=== PATIENT | female | born 1935 | race Caucasian/White ===

== ENCOUNTER 2018-06-25 09:14 | Inpatient (IN) ==
[2018-06-25] MEDS ORDERED: ONDANSETRON 4 MG/2 ML VIAL IV STA (09:31)
[2018-06-25] MEDS ORDERED: methylPREDNISolone SOD SUC 125 MG/2 ML VIAL IV STA (09:31)
[2018-06-25] MEDS ORDERED: LEVOFLOXACIN INJ 750 MG in PREMIX 1 EACH IV STA (09:31)
[2018-06-25] MEDS ORDERED: MAGNESIUM SULF RIDER 2 GM in PREMIX 1 EACH IV STA (09:31)
[2018-06-25 09:46] LABS: Basophils # 0.1 10*3/uL (0.0-0.2); Basophils % 0.9 % (0.0-0.8); Eosinophils # 2.7 10*3/uL (0.0-0.87); Eosinophils % 17.3 % (0.00-10.9); Hematocrit 46.2 VOL% (35.7-47.0); Immature Granulocytes % 0.5 %; Immature Granulocytes Absolute 0.08 #; Lymphocytes # 4.4 10*3/uL (1.4-4.0); Lymphocytes % 28.7 % (21.3-54.2); Mean Corpuscular HGB Conc 32.5 GM/DL (32-36); Mean Corpuscular Hemoglobin 30 PG (27-34); Mean Corpuscular Volume 93.5 FL (87-102); Mean Platelet Volume 9.7 FL (9.6-12.0); Monocytes % 6.7 % (1.7-12.7); Neutrophils # 7.1 10*3/uL (1.4-7.4); Neutrophils % 45.9 % (38.7-73.9); Platelet Count 213 T/CUMM (130-400); Red Blood Count 4.94 MC/CUMM (3.8-5.5); Red Cell Distribution Width 14.3 % (9.3-17.3); White Blood Count 15.4 T/CUMM (4-12)
[2018-06-25 09:55] LABS: PT Patient Result 10.9 SECS; Partial Thromboplastin Time 24.7 SECS (0-40)
[2018-06-25] MEDS ORDERED: ALBUTEROL 2.5 MG/3 ML NEB RESP TX SCH (10:00)
[2018-06-25 10:05] LABS: Alanine Aminotransferase 18 U/L (13-56); Albumin 3.7 G/DL (3.4-5.0); Alkaline Phosphatase 131 U/L (45-117); Aspartate Amino Transferase 18 U/L (0-37); Blood Urea Nitrogen 16 MG/DL (7-18); Calcium 9.4 MG/DL (8.5-10.1); Glucose 245 MG/DL (74-106); Osmolality,Calculated 283.7 MOS/KG (273-304); Potassium 3.8 MMOL/L (3.5-5.1); Sodium 138 MMOL/L (136-145); Total Protein 7.2 G/DL (6.4-8.3)
[2018-06-25] MEDS ORDERED: FUROSEMIDE 40 MG/4 ML VIAL IV STA (10:06)
[2018-06-25 10:07] LABS: Eosinophils 20 % (0-10); Lymphocytes 29 % (20-55); Segmented Neutrophils 47 % (50-85); Total Cells Counted 100; Troponin I Only 0.198 NG/ML (0.00-0.045)
[2018-06-25 10:08] LABS: Hypochromasia 1+; Microcytosis Slight; Platelet Estimate Normal
[2018-06-25] MEDS ORDERED: DILTIAZEM 50 MG/10 ML VIAL IV STA (10:37)
[2018-06-25] MEDS ORDERED: DIGOXIN 0.5 MG/2 ML AMP IV STA (11:16)
[2018-06-25 12:15] LABS: Apearance,Urine CLEAR (Clear); Bacteria,Urine Occasional /HPF (Few); Bilirubin,Urine Negative (Negative); Blood, Urine Negative (Negative); Glucose,Urine (UA) Negative (Negative); Hyaline Casts,Urine 1 /LPF (0-3); Ketones,Urine Negative (Negative); Mucus,Urine Occasional /LPF (Occasional); Nitrite,Urine Negative (Negative); Protein,Urine Negative; RBC,Urine <1 /HPF (0-4); Squamous Epithelial Cell,Urine Occasional /HPF (0-10); Urine Color Yellow (Yellow); Urine Specific Gravity 1.005 (1.001-1.035); Urine Urobilinogen < 2.0 EU/DL (0.2-1.0)
[2018-06-25] MEDS ORDERED: ONDANSETRON 4 MG/2 ML VIAL IV PRN (14:00)
[2018-06-25] MEDS ORDERED: ACETAMINOPHEN 325 MG TABLET PO PRN (14:00)
[2018-06-25] MEDS ORDERED: GLUCAGON 1 MG VIAL IM PRN (14:00)
[2018-06-25] MEDS ORDERED: DEXTROSE 50% 25 GM/50 ML VIAL IV PRN (14:00)
[2018-06-25] MEDS ORDERED: ALBUTEROL 0.63 MG/3 ML NEB RESP TX PRN (14:04)
[2018-06-25 17:00] LABS: Pt O2 Delivery Device Other
[2018-06-25 17:05] LABS: ABG Base Excess 4.1 MMOL/L (-2.5-2.5); ABG Oxygen Saturation 99.3 % (95-100); ABG PCO2 43.1 MM HG (35-48); ABG PH 7.434 (7.35-7.45); ABG TCO2 24.6 MMOL/L (23-27)
[2018-06-25] MEDS: MEROPENEM 1,000 MG in SYRINGE 1 EACH IV SCH (17:15)
[2018-06-25] MEDS: ENOXAPARIN 30 MG/0.3 ML SYRINGE SUBCUT SCH (17:15)
[2018-06-25] MEDS: methylPREDNISolone SOD SUC 40 MG/1 ML VIAL IV SCH ×2 (17:15→22:37)
[2018-06-25] MEDS: PANTOPRAZOLE 40 MG TABLET PO SCH (17:15)
[2018-06-25] MEDS ORDERED: FUROSEMIDE 40 MG/4 ML VIAL IV ONE (18:45)
[2018-06-25] MEDS: SODIUM CHLORIDE 0.9% 1,000 ML IV SCH (19:17)
[2018-06-25] MEDS: INSULIN LISPRO 100 UNIT/ML SUBCUT SCH ×2 (19:18→22:36)
[2018-06-25] MEDS: ALBUTEROL/IPRATROPIUM 3 ML NEB RESP TX SCH (20:10)
[2018-06-26] MEDS: INSULIN LISPRO 100 UNIT/ML SUBCUT SCH ×3 (00:12→07:44)
[2018-06-26] MEDS: ALBUTEROL/IPRATROPIUM 3 ML NEB RESP TX SCH ×4 (01:12→19:22)
[2018-06-26] MEDS: MEROPENEM 1,000 MG in SYRINGE 1 EACH IV SCH ×2 (03:41→14:34)
[2018-06-26 06:03] LABS: Basophils % 0.1 % (0.0-0.8); Eosinophils % 0.1 % (0.00-10.9); Hematocrit 40.1 VOL% (35.7-47.0); Hemoglobin 13.4 GM/DL (12.0-16.0); Immature Granulocytes % 0.7 %; Immature Granulocytes Absolute 0.06 #; Lymphocytes # 0.6 10*3/uL (1.4-4.0); Lymphocytes % 6.2 % (21.3-54.2); Mean Corpuscular HGB Conc 33.4 GM/DL (32-36); Mean Corpuscular Hemoglobin 30 PG (27-34); Mean Corpuscular Volume 90.1 FL (87-102); Mean Platelet Volume 10.2 FL (9.6-12.0); Monocytes # 0.3 10*3/uL (0.11-0.8); Monocytes % 2.8 % (1.7-12.7); Neutrophils % 90.1 % (38.7-73.9); Platelet Count 160 T/CUMM (130-400); Red Blood Count 4.45 MC/CUMM (3.8-5.5); White Blood Count 8.9 T/CUMM (4-12)
[2018-06-26] MEDS: methylPREDNISolone SOD SUC 40 MG/1 ML VIAL IV SCH ×3 (06:22→22:36)
[2018-06-26] MEDS: SODIUM CHLORIDE 0.9% 1,000 ML IV SCH (06:22)
[2018-06-26 06:23] LABS: Calcium 8.7 MG/DL (8.5-10.1); Osmolality,Calculated 286.4 MOS/KG (273-304); Potassium 3.4 MMOL/L (3.5-5.1)
[2018-06-26] MEDS: PANTOPRAZOLE 40 MG TABLET PO SCH (08:38)
[2018-06-26] MEDS: POTASSIUM CHLORIDE 20 MEQ TABLET PO PRN ×4 (11:03→21:48)
[2018-06-26] MEDS ORDERED: NITROGLYCERIN SL 0.4 MG TABLET SL PRN (12:02)
[2018-06-26] MEDS: ASPIRIN EC 81 MG TABLET PO SCH (12:40)
[2018-06-26] MEDS: METOPROLOL SUCCINATE XL 50 MG TABLET PO SCH (12:40)
[2018-06-26 13:16] LABS: CKMB % 5.7 %; Troponin I Only 1.98 NG/ML (0.00-0.045)
[2018-06-26] MEDS: ENOXAPARIN 30 MG/0.3 ML SYRINGE SUBCUT SCH (14:34)
[2018-06-26] MEDS: FUROSEMIDE 40 MG/4 ML VIAL IV SCH (15:27)
[2018-06-26] MEDS: ATORVASTATIN 10 MG TABLET PO SCH (20:43)
[2018-06-27] MEDS: ALBUTEROL/IPRATROPIUM 3 ML NEB RESP TX SCH ×5 (00:46→23:59)
[2018-06-27] MEDS: MEROPENEM 1,000 MG in SYRINGE 1 EACH IV SCH ×2 (02:11→13:40)
[2018-06-27 05:31] LABS: Basophils % 0.2 % (0.0-0.8); Eosinophils % 0.1 % (0.00-10.9); Hematocrit 41.8 VOL% (35.7-47.0); Hemoglobin 14.1 GM/DL (12.0-16.0); Immature Granulocytes % 0.6 %; Lymphocytes % 3.5 % (21.3-54.2); Mean Corpuscular HGB Conc 33.7 GM/DL (32-36); Mean Corpuscular Hemoglobin 30 PG (27-34); Mean Corpuscular Volume 89.1 FL (87-102); Mean Platelet Volume 10.2 FL (9.6-12.0); Neutrophils % 93.6 % (38.7-73.9); Platelet Count 190 T/CUMM (130-400); Red Blood Count 4.69 MC/CUMM (3.8-5.5); Red Cell Distribution Width 14.4 % (9.3-17.3); White Blood Count 17.3 T/CUMM (4-12)
[2018-06-27 05:32] LABS: Immature Granulocytes Absolute 0.11 #; Lymphocytes # 0.6 10*3/uL (1.4-4.0); Monocytes # 0.4 10*3/uL (0.11-0.8); Neutrophils # 16.2 10*3/uL (1.4-7.4)
[2018-06-27 05:59] LABS: Osmolality,Calculated 296.7 MOS/KG (273-304); Potassium 3.8 MMOL/L (3.5-5.1)
[2018-06-27 06:02] LABS: Risk Ratio 2.73; VLDL CHOLESTEROL 22.8 MG/DL
[2018-06-27 06:20] LABS: Anisocytosis Slight; Band Neutrophils 8 % (0-10); Lymphocytes 1 % (20-55); Platelet Estimate Normal; Segmented Neutrophils 88 % (50-85); Total Cells Counted 100
[2018-06-27] MEDS: POTASSIUM CHLORIDE 20 MEQ TABLET PO PRN (06:24)
[2018-06-27] MEDS: PANTOPRAZOLE 40 MG TABLET PO SCH (08:44)
[2018-06-27] MEDS: FUROSEMIDE 40 MG/4 ML VIAL IV SCH ×2 (08:44→16:14)
[2018-06-27] MEDS: METOPROLOL SUCCINATE XL 50 MG TABLET PO SCH (08:44)
[2018-06-27] MEDS: ASPIRIN EC 81 MG TABLET PO SCH (08:44)
[2018-06-27] MEDS ORDERED: amLODIPine 2.5 MG TABLET PO SCH (09:00)
[2018-06-27] MEDS: methylPREDNISolone SOD SUC 40 MG/1 ML VIAL IV SCH ×2 (11:03→23:01)
[2018-06-27] MEDS: ENOXAPARIN 30 MG/0.3 ML SYRINGE SUBCUT SCH (13:47)
[2018-06-27] MEDS: ATORVASTATIN 10 MG TABLET PO SCH (20:02)
[2018-06-28] MEDS ORDERED: clonazePAM 0.5 MG TABLET PO ONE
[2018-06-28] MEDS: MEROPENEM 1,000 MG in SYRINGE 1 EACH IV SCH ×2 (02:56→15:05)
[2018-06-28 05:24] LABS: Basophils % 0.1 % (0.0-0.8); Eosinophils % 0.1 % (0.00-10.9); Hematocrit 43.9 VOL% (35.7-47.0); Hemoglobin 14.5 GM/DL (12.0-16.0); Immature Granulocytes % 0.9 %; Immature Granulocytes Absolute 0.12 #; Lymphocytes # 0.6 10*3/uL (1.4-4.0); Lymphocytes % 4.4 % (21.3-54.2); Mean Corpuscular Hemoglobin 30 PG (27-34); Mean Platelet Volume 10.2 FL (9.6-12.0); Monocytes # 0.4 10*3/uL (0.11-0.8); Monocytes % 2.7 % (1.7-12.7); Neutrophils # 12.1 10*3/uL (1.4-7.4); Neutrophils % 91.8 % (38.7-73.9); Platelet Count 189 T/CUMM (130-400); Red Blood Count 4.88 MC/CUMM (3.8-5.5); Red Cell Distribution Width 14.3 % (9.3-17.3); White Blood Count 13.2 T/CUMM (4-12)
[2018-06-28 05:40] LABS: Calcium 9.2 MG/DL (8.5-10.1); Osmolality,Calculated 296.8 MOS/KG (273-304); Potassium 3.6 MMOL/L (3.5-5.1)
[2018-06-28 06:22] LABS: Lymphocytes 4 % (20-55); Segmented Neutrophils 95 % (50-85); Total Cells Counted 100
[2018-06-28 06:23] LABS: Anisocytosis 1+; Ovalocytes Few
[2018-06-28 06:24] LABS: Platelet Estimate Normal
[2018-06-28] MEDS: ALBUTEROL/IPRATROPIUM 3 ML NEB RESP TX SCH ×3 (07:05→19:46)
[2018-06-28] MEDS: FUROSEMIDE 40 MG/4 ML VIAL IV SCH (09:08)
[2018-06-28] MEDS: POTASSIUM CHLORIDE 20 MEQ TABLET PO SCH ×2 (09:09→21:03)
[2018-06-28] MEDS: PANTOPRAZOLE 40 MG TABLET PO SCH (09:09)
[2018-06-28] MEDS: ASPIRIN EC 81 MG TABLET PO SCH (09:09)
[2018-06-28] MEDS: amLODIPine 5 MG TABLET PO SCH (09:09)
[2018-06-28] MEDS: METOPROLOL SUCCINATE XL 50 MG TABLET PO SCH (09:09)
[2018-06-28] MEDS: methylPREDNISolone SOD SUC 40 MG/1 ML VIAL IV SCH ×3 (10:25→22:33)
[2018-06-28] MEDS: ENOXAPARIN 30 MG/0.3 ML SYRINGE SUBCUT SCH (13:23)
[2018-06-28] MEDS: LEVOTHYROXINE 100 MCG TABLET PO SCH (15:05)
[2018-06-28] MEDS: ATORVASTATIN 10 MG TABLET PO SCH (21:04)
[2018-06-28] MEDS: clonazePAM 0.5 MG TABLET PO SCH (21:56)
[2018-06-29] MEDS: ALBUTEROL/IPRATROPIUM 3 ML NEB RESP TX SCH ×4 (00:04→19:33)
[2018-06-29] MEDS: MEROPENEM 1,000 MG in SYRINGE 1 EACH IV SCH ×2 (02:14→15:09)
[2018-06-29 03:56] LABS: Basophils % 0.1 % (0.0-0.8); Eosinophils % 0.1 % (0.00-10.9); Hemoglobin 14.6 GM/DL (12.0-16.0); Immature Granulocytes % 0.8 %; Lymphocytes # 0.5 10*3/uL (1.4-4.0); Lymphocytes % 4.5 % (21.3-54.2); Mean Corpuscular Hemoglobin 31 PG (27-34); Mean Corpuscular Volume 90.3 FL (87-102); Mean Platelet Volume 10.3 FL (9.6-12.0); Monocytes # 0.4 10*3/uL (0.11-0.8); Monocytes % 3.1 % (1.7-12.7); Neutrophils # 10.9 10*3/uL (1.4-7.4); Neutrophils % 91.4 % (38.7-73.9); Platelet Count 174 T/CUMM (130-400); Red Blood Count 4.76 MC/CUMM (3.8-5.5); Red Cell Distribution Width 14.3 % (9.3-17.3); White Blood Count 11.9 T/CUMM (4-12)
[2018-06-29 04:31] LABS: Lymphocytes 3 % (20-55); Platelet Estimate Normal; Promyelocytes 1 %; Segmented Neutrophils 93 % (50-85); Total Cells Counted 100
[2018-06-29 04:32] LABS: Calcium 9.6 MG/DL (8.5-10.1); Osmolality,Calculated 303.6 MOS/KG (273-304); Potassium 3.9 MMOL/L (3.5-5.1)
[2018-06-29] MEDS: LEVOTHYROXINE 100 MCG TABLET PO SCH (05:56)
[2018-06-29] MEDS: POTASSIUM CHLORIDE 20 MEQ TABLET PO SCH ×2 (10:07→21:32)
[2018-06-29] MEDS: amLODIPine 5 MG TABLET PO SCH (10:08)
[2018-06-29] MEDS: ASPIRIN EC 81 MG TABLET PO SCH (10:08)
[2018-06-29] MEDS: PANTOPRAZOLE 40 MG TABLET PO SCH (10:08)
[2018-06-29] MEDS: METOPROLOL SUCCINATE XL 50 MG TABLET PO SCH (10:09)
[2018-06-29] MEDS: FUROSEMIDE 40 MG/4 ML VIAL IV SCH (10:09)
[2018-06-29] MEDS: methylPREDNISolone SOD SUC 40 MG/1 ML VIAL IV SCH ×2 (12:51→23:27)
[2018-06-29] MEDS: MONTELUKAST 10 MG TABLET PO SCH (14:57)
[2018-06-29] MEDS: BUDESONIDE/FORMOTEROL 160-4.5 INHALER 6 GM INH SCH ×2 (14:57→21:36)
[2018-06-29] MEDS: ENOXAPARIN 30 MG/0.3 ML SYRINGE SUBCUT SCH (14:59)
[2018-06-29] MEDS: ATORVASTATIN 10 MG TABLET PO SCH (21:32)
[2018-06-29] MEDS: clonazePAM 0.5 MG TABLET PO SCH (21:32)
[2018-06-29] MEDS: ZINC OXIDE PASTE 113 GM TUBE TOP SCH (21:36)
[2018-06-30] MEDS: ALBUTEROL/IPRATROPIUM 3 ML NEB RESP TX SCH ×4 (01:35→19:48)
[2018-06-30] MEDS: MEROPENEM 1,000 MG in SYRINGE 1 EACH IV SCH (02:39)
[2018-06-30 04:44] LABS: Hemoglobin 14.1 GM/DL (12.0-16.0); Immature Granulocytes % 1.2 %; Immature Granulocytes Absolute 0.12 #; Lymphocytes # 0.6 10*3/uL (1.4-4.0); Lymphocytes % 5.4 % (21.3-54.2); Mean Corpuscular HGB Conc 32.8 GM/DL (32-36); Mean Corpuscular Hemoglobin 30 PG (27-34); Mean Corpuscular Volume 91.7 FL (87-102); Mean Platelet Volume 10.8 FL (9.6-12.0); Monocytes # 0.4 10*3/uL (0.11-0.8); Monocytes % 3.7 % (1.7-12.7); Neutrophils # 9.1 10*3/uL (1.4-7.4); Neutrophils % 89.7 % (38.7-73.9); Platelet Count 162 T/CUMM (130-400); Red Blood Count 4.69 MC/CUMM (3.8-5.5); Red Cell Distribution Width 14.2 % (9.3-17.3); White Blood Count 10.1 T/CUMM (4-12)
[2018-06-30 05:07] LABS: Calcium 9.1 MG/DL (8.5-10.1); Osmolality,Calculated 298.1 MOS/KG (273-304); Potassium 4.1 MMOL/L (3.5-5.1)
[2018-06-30] MEDS: LEVOTHYROXINE 100 MCG TABLET PO SCH (06:27)
[2018-06-30] MEDS: ASPIRIN EC 81 MG TABLET PO SCH (10:18)
[2018-06-30] MEDS: POTASSIUM CHLORIDE 20 MEQ TABLET PO SCH ×2 (10:18→22:24)
[2018-06-30] MEDS: PANTOPRAZOLE 40 MG TABLET PO SCH (10:18)
[2018-06-30] MEDS: MONTELUKAST 10 MG TABLET PO SCH (10:19)
[2018-06-30] MEDS: methylPREDNISolone SOD SUC 40 MG/1 ML VIAL IV SCH ×2 (10:19→22:29)
[2018-06-30] MEDS: METOPROLOL SUCCINATE XL 50 MG TABLET PO SCH (10:19)
[2018-06-30] MEDS: ZINC OXIDE PASTE 113 GM TUBE TOP SCH ×2 (10:19→22:30)
[2018-06-30] MEDS: amLODIPine 5 MG TABLET PO SCH (10:19)
[2018-06-30] MEDS: BUDESONIDE/FORMOTEROL 160-4.5 INHALER 6 GM INH SCH ×2 (10:19→22:26)
[2018-06-30] MEDS: FUROSEMIDE 40 MG/4 ML VIAL IV SCH (10:20)
[2018-06-30] MEDS: LEVOFLOXACIN 750 MG TABLET PO SCH (13:12)
[2018-06-30] MEDS: FLUCONAZOLE 100 MG TABLET PO SCH (13:12)
[2018-06-30] MEDS: ENOXAPARIN 30 MG/0.3 ML SYRINGE SUBCUT SCH (17:09)
[2018-06-30] MEDS: VENLAFAXINE 75 MG TABLET PO SCH (22:23)
[2018-06-30] MEDS: clonazePAM 0.5 MG TABLET PO SCH (22:23)
[2018-06-30] MEDS: ATORVASTATIN 10 MG TABLET PO SCH (22:24)
[2018-06-30] MEDS: GABAPENTIN 100 MG CAPSULE PO SCH (22:25)
[2018-07-01] MEDS: ALBUTEROL/IPRATROPIUM 3 ML NEB RESP TX SCH ×4 (01:04→20:22)
[2018-07-01] MEDS: LEVOTHYROXINE 100 MCG TABLET PO SCH (05:49)
[2018-07-01 05:55] LABS: Basophils % 0.2 % (0.0-0.8); Hematocrit 41.6 VOL% (35.7-47.0); Hemoglobin 13.9 GM/DL (12.0-16.0); Immature Granulocytes % 1.3 %; Immature Granulocytes Absolute 0.13 #; Lymphocytes # 0.5 10*3/uL (1.4-4.0); Lymphocytes % 4.9 % (21.3-54.2); Mean Corpuscular HGB Conc 33.4 GM/DL (32-36); Mean Corpuscular Hemoglobin 30 PG (27-34); Mean Corpuscular Volume 89.5 FL (87-102); Mean Platelet Volume 10.4 FL (9.6-12.0); Monocytes # 0.3 10*3/uL (0.11-0.8); Monocytes % 3.4 % (1.7-12.7); Neutrophils # 8.7 10*3/uL (1.4-7.4); Neutrophils % 90.2 % (38.7-73.9); Platelet Count 146 T/CUMM (130-400); Red Blood Count 4.65 MC/CUMM (3.8-5.5); Red Cell Distribution Width 13.8 % (9.3-17.3); White Blood Count 9.7 T/CUMM (4-12)
[2018-07-01 06:08] LABS: Osmolality,Calculated 297.4 MOS/KG (273-304); Potassium 4.5 MMOL/L (3.5-5.1)
[2018-07-01 06:20] LABS: Band Neutrophils 2 % (0-10); Lymphocytes 3 % (20-55); Platelet Estimate Normal; Segmented Neutrophils 95 % (50-85); Total Cells Counted 100
[2018-07-01] MEDS: VENLAFAXINE 75 MG TABLET PO SCH ×2 (09:45→21:38)
[2018-07-01] MEDS: MONTELUKAST 10 MG TABLET PO SCH (09:45)
[2018-07-01] MEDS: FUROSEMIDE 40 MG TABLET PO SCH (09:45)
[2018-07-01] MEDS: ASPIRIN EC 81 MG TABLET PO SCH (09:45)
[2018-07-01] MEDS: POTASSIUM CHLORIDE 20 MEQ TABLET PO SCH ×2 (09:45→21:39)
[2018-07-01] MEDS: FLUCONAZOLE 100 MG TABLET PO SCH (09:46)
[2018-07-01] MEDS: BUDESONIDE/FORMOTEROL 160-4.5 INHALER 6 GM INH SCH ×2 (09:46→21:39)
[2018-07-01] MEDS: METOPROLOL SUCCINATE XL 50 MG TABLET PO SCH (09:46)
[2018-07-01] MEDS: GABAPENTIN 100 MG CAPSULE PO SCH ×2 (09:46→21:38)
[2018-07-01] MEDS: ZINC OXIDE PASTE 113 GM TUBE TOP SCH ×2 (09:46→21:39)
[2018-07-01] MEDS: amLODIPine 5 MG TABLET PO SCH (09:46)
[2018-07-01] MEDS: PANTOPRAZOLE 40 MG TABLET PO SCH (09:46)
[2018-07-01] MEDS: methylPREDNISolone SOD SUC 40 MG/1 ML VIAL IV SCH ×2 (11:33→23:03)
[2018-07-01] MEDS: ENOXAPARIN 30 MG/0.3 ML SYRINGE SUBCUT SCH (14:41)
[2018-07-01] MEDS: ATORVASTATIN 10 MG TABLET PO SCH (21:38)
[2018-07-01] MEDS: clonazePAM 0.5 MG TABLET PO SCH (21:38)
[2018-07-02] MEDS: ALBUTEROL/IPRATROPIUM 3 ML NEB RESP TX SCH ×4 (00:54→19:41)
[2018-07-02] MEDS: LEVOTHYROXINE 100 MCG TABLET PO SCH (05:47)
[2018-07-02 06:36] LABS: Basophils % 0.2 % (0.0-0.8); Hematocrit 44.8 VOL% (35.7-47.0); Hemoglobin 14.3 GM/DL (12.0-16.0); Immature Granulocytes % 1.5 %; Immature Granulocytes Absolute 0.19 #; Lymphocytes # 0.5 10*3/uL (1.4-4.0); Lymphocytes % 4.3 % (21.3-54.2); Mean Corpuscular HGB Conc 31.9 GM/DL (32-36); Mean Corpuscular Hemoglobin 30 PG (27-34); Mean Corpuscular Volume 92.9 FL (87-102); Mean Platelet Volume 10.3 FL (9.6-12.0); Monocytes # 0.5 10*3/uL (0.11-0.8); Monocytes % 3.6 % (1.7-12.7); Neutrophils # 11.5 10*3/uL (1.4-7.4); Neutrophils % 90.4 % (38.7-73.9); Platelet Count 153 T/CUMM (130-400); Red Blood Count 4.82 MC/CUMM (3.8-5.5); Red Cell Distribution Width 13.9 % (9.3-17.3); White Blood Count 12.7 T/CUMM (4-12)
[2018-07-02 06:59] LABS: Lymphocytes 7 % (20-55); Segmented Neutrophils 92 % (50-85); Total Cells Counted 100
[2018-07-02 07:00] LABS: Hypochromasia 1+; Microcytosis 1+; Platelet Estimate Adequate
[2018-07-02 07:09] LABS: Osmolality,Calculated 293.5 MOS/KG (273-304)
[2018-07-02 07:30] LABS: INR 1.1; PT Patient Result 11.4 SECS
[2018-07-02] MEDS ORDERED: diphenhydrAMINE 50 MG/1 ML VIAL IM ONE (08:00)
[2018-07-02] MEDS ORDERED: BENZONATATE 100 MG CAPSULE PO ONE (08:00)
[2018-07-02] MEDS ORDERED: MEPERIDINE 50 MG/1 ML VIAL IM ONE (08:00)
[2018-07-02] MEDS ORDERED: LIDOCAINE 2% 20 ML VIAL RESP TX ONE (08:30)
[2018-07-02] MEDS ORDERED: LIDOCAINE 2% VISCOUS 100 ML BOTTLE SWISH/SPIT ONE (08:30)
[2018-07-02] MEDS ORDERED: LIDOCAINE 1% 20 ML VIAL MISC INJ ONE (08:30)
[2018-07-02] MEDS: FLUCONAZOLE 100 MG TABLET PO SCH (11:41)
[2018-07-02] MEDS: VENLAFAXINE 75 MG TABLET PO SCH ×2 (11:41→21:20)
[2018-07-02] MEDS: ASPIRIN EC 81 MG TABLET PO SCH (11:41)
[2018-07-02] MEDS: FUROSEMIDE 40 MG TABLET PO SCH (11:42)
[2018-07-02] MEDS: LEVOFLOXACIN 750 MG TABLET PO SCH (11:42)
[2018-07-02] MEDS: POTASSIUM CHLORIDE 20 MEQ TABLET PO SCH ×2 (11:42→21:21)
[2018-07-02] MEDS: GABAPENTIN 100 MG CAPSULE PO SCH ×2 (11:43→21:20)
[2018-07-02] MEDS: PANTOPRAZOLE 40 MG TABLET PO SCH (11:43)
[2018-07-02] MEDS: MONTELUKAST 10 MG TABLET PO SCH (11:43)
[2018-07-02] MEDS: amLODIPine 5 MG TABLET PO SCH (11:44)
[2018-07-02] MEDS: methylPREDNISolone SOD SUC 40 MG/1 ML VIAL IV SCH ×2 (11:44→23:42)
[2018-07-02] MEDS: METOPROLOL SUCCINATE XL 50 MG TABLET PO SCH (11:44)
[2018-07-02] MEDS: ZINC OXIDE PASTE 113 GM TUBE TOP SCH ×2 (11:45→21:21)
[2018-07-02] MEDS: BUDESONIDE/FORMOTEROL 160-4.5 INHALER 6 GM INH SCH ×2 (11:46→21:21)
[2018-07-02] MEDS: ENOXAPARIN 30 MG/0.3 ML SYRINGE SUBCUT SCH (14:54)
[2018-07-02] MEDS: ATORVASTATIN 10 MG TABLET PO SCH (21:20)
[2018-07-02] MEDS: DOCUSATE SODIUM 100 MG CAPSULE PO SCH (21:21)
[2018-07-02] MEDS: clonazePAM 0.5 MG TABLET PO SCH (21:21)
[2018-07-03] MEDS: ALBUTEROL/IPRATROPIUM 3 ML NEB RESP TX SCH ×3 (00:16→13:35)
[2018-07-03 05:30] LABS: Basophils % 0.2 % (0.0-0.8); Eosinophils % 0.1 % (0.00-10.9); Hematocrit 40.5 VOL% (35.7-47.0); Hemoglobin 13.7 GM/DL (12.0-16.0); Immature Granulocytes % 1.4 %; Immature Granulocytes Absolute 0.16 #; Lymphocytes # 0.4 10*3/uL (1.4-4.0); Mean Corpuscular HGB Conc 33.8 GM/DL (32-36); Mean Corpuscular Hemoglobin 31 PG (27-34); Mean Corpuscular Volume 90.2 FL (87-102); Mean Platelet Volume 10.5 FL (9.6-12.0); Monocytes # 0.4 10*3/uL (0.11-0.8); Monocytes % 3.2 % (1.7-12.7); Neutrophils # 10.8 10*3/uL (1.4-7.4); Neutrophils % 92.1 % (38.7-73.9); Platelet Count 143 T/CUMM (130-400); Red Blood Count 4.49 MC/CUMM (3.8-5.5); Red Cell Distribution Width 13.8 % (9.3-17.3); White Blood Count 11.7 T/CUMM (4-12)
[2018-07-03 05:54] LABS: Calcium 8.9 MG/DL (8.5-10.1); Osmolality,Calculated 300.4 MOS/KG (273-304); Potassium 5.3 MMOL/L (3.5-5.1)
[2018-07-03] MEDS: LEVOTHYROXINE 100 MCG TABLET PO SCH (06:02)
[2018-07-03 06:20] LABS: Hypochromasia 1+; Lymphocytes 4 % (20-55); Segmented Neutrophils 91 % (50-85); Total Cells Counted 100
[2018-07-03 06:21] LABS: Microcytosis 1+; Platelet Estimate Adequate
[2018-07-03] MEDS: ASPIRIN EC 81 MG TABLET PO SCH (10:49)
[2018-07-03] MEDS: amLODIPine 5 MG TABLET PO SCH (10:50)
[2018-07-03] MEDS: METOPROLOL SUCCINATE XL 50 MG TABLET PO SCH (10:50)
[2018-07-03] MEDS: DOCUSATE SODIUM 100 MG CAPSULE PO SCH (10:50)
[2018-07-03] MEDS: VENLAFAXINE 75 MG TABLET PO SCH (10:50)
[2018-07-03] MEDS: FUROSEMIDE 40 MG TABLET PO SCH (10:50)
[2018-07-03] MEDS: FLUCONAZOLE 100 MG TABLET PO SCH (10:50)
[2018-07-03] MEDS: PANTOPRAZOLE 40 MG TABLET PO SCH (10:51)
[2018-07-03] MEDS: GABAPENTIN 100 MG CAPSULE PO SCH (10:51)
[2018-07-03] MEDS: MONTELUKAST 10 MG TABLET PO SCH (10:51)
[2018-07-03] MEDS: POTASSIUM CHLORIDE 20 MEQ TABLET PO SCH (10:52)
[2018-07-03] MEDS: ZINC OXIDE PASTE 113 GM TUBE TOP SCH (10:52)
[2018-07-03] MEDS: BUDESONIDE/FORMOTEROL 160-4.5 INHALER 6 GM INH SCH (10:52)
[2018-07-03] MEDS: methylPREDNISolone SOD SUC 40 MG/1 ML VIAL IV SCH (11:58)
[2018-07-03 12:10] VITALS: BP 121/76
[2018-07-03] MEDS: ENOXAPARIN 30 MG/0.3 ML SYRINGE SUBCUT SCH (16:34)
== END 2018-07-03 16:07 | disposition swing bed (61) | DRG 163 ==
LOC: N.ED 09:14 → N.EDINP 10:52 → SUATTDRO 10:52 → N.ICU 12:35 → N.TELEN 06-28 14:00
PROVIDERS: ADMIT Internal Medicine; ATTEND Internal Medicine

== ENCOUNTER 2018-07-22 09:00 | Inpatient (IN) ==
[2018-07-22 09:43] LABS: Basophils % 0.3 % (0.0-0.8); Eosinophils # 0.2 10*3/uL (0.0-0.87); Eosinophils % 2.6 % (0.00-10.9); Hematocrit 37.9 VOL% (35.7-47.0); Hemoglobin 12.5 GM/DL (12.0-16.0); Immature Granulocytes % 0.7 %; Immature Granulocytes Absolute 0.06 #; Lymphocytes # 0.9 10*3/uL (1.4-4.0); Lymphocytes % 10.4 % (21.3-54.2); Mean Corpuscular Hemoglobin 31 PG (27-34); Mean Platelet Volume 9.5 FL (9.6-12.0); Monocytes # 0.8 10*3/uL (0.11-0.8); Monocytes % 8.7 % (1.7-12.7); Neutrophils # 6.9 10*3/uL (1.4-7.4); Neutrophils % 77.3 % (38.7-73.9); Platelet Count 108 T/CUMM (130-400); Red Blood Count 4.03 MC/CUMM (3.8-5.5)
[2018-07-22 09:56] LABS: PT Patient Result 10.3 SECS; Partial Thromboplastin Time 22.5 SECS (0-40)
[2018-07-22 10:08] LABS: Albumin 3.6 G/DL (3.4-5.0); Calcium 8.6 MG/DL (8.5-10.1); Osmolality,Calculated 294.7 MOS/KG (273-304); Potassium 3.8 MMOL/L (3.5-5.1); Total Protein 6.2 G/DL (6.4-8.3)
[2018-07-22 16:22] LABS: Apearance,Urine CLEAR (Clear); Bilirubin,Urine Negative (Negative); Blood, Urine Negative (Negative); Glucose,Urine (UA) Negative (Negative); Ketones,Urine Negative (Negative); Mucus,Urine Occasional /LPF (Occasional); Nitrite,Urine Negative (Negative); Protein,Urine Negative; RBC,Urine <1 /HPF (0-4); Urine Color Straw (Yellow); Urine Specific Gravity 1.005 (1.001-1.035); Urine Urobilinogen < 2.0 EU/DL (0.2-1.0); WBC,Urine <1 /HPF (0-6)
[2018-07-23 01:58] LABS: Eosinophils % 0.4 % (0.00-10.9); Hematocrit 32.2 VOL% (35.7-47.0); Hemoglobin 10.9 GM/DL (12.0-16.0); Immature Granulocytes % 0.6 %; Immature Granulocytes Absolute 0.04 #; Lymphocytes # 0.6 10*3/uL (1.4-4.0); Lymphocytes % 8.4 % (21.3-54.2); Mean Corpuscular HGB Conc 33.9 GM/DL (32-36); Mean Corpuscular Hemoglobin 31 PG (27-34); Mean Corpuscular Volume 90.2 FL (87-102); Mean Platelet Volume 9.4 FL (9.6-12.0); Monocytes # 0.5 10*3/uL (0.11-0.8); Monocytes % 7.5 % (1.7-12.7); Neutrophils % 83.1 % (38.7-73.9); Platelet Count 110 T/CUMM (130-400); Red Blood Count 3.57 MC/CUMM (3.8-5.5); Red Cell Distribution Width 15.9 % (9.3-17.3); White Blood Count 7.2 T/CUMM (4-12)
[2018-07-23 02:23] LABS: Calcium 8.9 MG/DL (8.5-10.1); Osmolality,Calculated 291.8 MOS/KG (273-304); Potassium 3.2 MMOL/L (3.5-5.1)
[2018-07-24 05:25] LABS: Apearance,Urine CLEAR (Clear); Bilirubin,Urine Negative (Negative); Blood, Urine Negative (Negative); Glucose,Urine (UA) Negative (Negative); Hyaline Casts,Urine 2 /LPF (0-3); Ketones,Urine Negative (Negative); Mucus,Urine Occasional /LPF (Occasional); Nitrite,Urine Negative (Negative); Protein,Urine Negative; RBC,Urine <1 /HPF (0-4); Squamous Epithelial Cell,Urine Occasional /HPF (0-10); Urine Color Yellow (Yellow); Urine Specific Gravity 1.011 (1.001-1.035); Urine Urobilinogen < 2.0 EU/DL (0.2-1.0); WBC,Urine <1 /HPF (0-6)
[2018-07-24 05:34] LABS: Basophils % 0.2 % (0.0-0.8); Eosinophils # 0.2 10*3/uL (0.0-0.87); Hematocrit 36.9 VOL% (35.7-47.0); Hemoglobin 12.2 GM/DL (12.0-16.0); Immature Granulocytes % 0.7 %; Immature Granulocytes Absolute 0.06 #; Lymphocytes # 0.9 10*3/uL (1.4-4.0); Lymphocytes % 9.7 % (21.3-54.2); Mean Corpuscular HGB Conc 33.1 GM/DL (32-36); Mean Corpuscular Hemoglobin 31 PG (27-34); Mean Corpuscular Volume 93.9 FL (87-102); Mean Platelet Volume 9.8 FL (9.6-12.0); Monocytes # 0.5 10*3/uL (0.11-0.8); Monocytes % 5.9 % (1.7-12.7); NRBC # 0.03 10*3/uL; Neutrophils # 7.2 10*3/uL (1.4-7.4); Neutrophils % 81.5 % (38.7-73.9); Platelet Count 136 T/CUMM (130-400); Red Blood Count 3.93 MC/CUMM (3.8-5.5); Red Cell Distribution Width 16.6 % (9.3-17.3); White Blood Count 8.8 T/CUMM (4-12)
[2018-07-24 05:45] LABS: Calcium 10.2 MG/DL (8.5-10.1); Osmolality,Calculated 295.7 MOS/KG (273-304)
[2018-07-25 05:48] LABS: Basophils % 0.1 % (0.0-0.8); Eosinophils # 0.2 10*3/uL (0.0-0.87); Hematocrit 37.1 VOL% (35.7-47.0); Hemoglobin 11.8 GM/DL (12.0-16.0); Immature Granulocytes % 0.5 %; Immature Granulocytes Absolute 0.04 #; Lymphocytes # 0.7 10*3/uL (1.4-4.0); Lymphocytes % 8.1 % (21.3-54.2); Mean Corpuscular HGB Conc 31.8 GM/DL (32-36); Mean Corpuscular Hemoglobin 30 PG (27-34); Mean Corpuscular Volume 95.4 FL (87-102); Mean Platelet Volume 9.7 FL (9.6-12.0); Monocytes # 0.6 10*3/uL (0.11-0.8); Monocytes % 7.8 % (1.7-12.7); Neutrophils # 6.6 10*3/uL (1.4-7.4); Neutrophils % 81.5 % (38.7-73.9); Platelet Count 146 T/CUMM (130-400); Red Blood Count 3.89 MC/CUMM (3.8-5.5); Red Cell Distribution Width 17.1 % (9.3-17.3); White Blood Count 8.1 T/CUMM (4-12)
[2018-07-25 06:05] LABS: Calcium 9.7 MG/DL (8.5-10.1); Osmolality,Calculated 293.1 MOS/KG (273-304); Potassium 5.2 MMOL/L (3.5-5.1)
[2018-07-26 04:31] LABS: Eosinophils # 0.2 10*3/uL (0.0-0.87); Eosinophils % 2.6 % (0.00-10.9); Hematocrit 34.7 VOL% (35.7-47.0); Hemoglobin 11.5 GM/DL (12.0-16.0); Immature Granulocytes % 0.4 %; Immature Granulocytes Absolute 0.03 #; Lymphocytes # 0.8 10*3/uL (1.4-4.0); Lymphocytes % 10.8 % (21.3-54.2); Mean Corpuscular HGB Conc 33.1 GM/DL (32-36); Mean Corpuscular Hemoglobin 31 PG (27-34); Mean Corpuscular Volume 93.5 FL (87-102); Mean Platelet Volume 10.1 FL (9.6-12.0); Monocytes # 0.5 10*3/uL (0.11-0.8); Monocytes % 6.8 % (1.7-12.7); Neutrophils # 5.7 10*3/uL (1.4-7.4); Neutrophils % 79.4 % (38.7-73.9); Platelet Count 149 T/CUMM (130-400); Red Blood Count 3.71 MC/CUMM (3.8-5.5); Red Cell Distribution Width 16.4 % (9.3-17.3); White Blood Count 7.2 T/CUMM (4-12)
[2018-07-26 05:46] LABS: Potassium 2.8 MMOL/L (3.5-5.1)
[2018-07-26 05:49] LABS: Osmolality,Calculated 286.5 MOS/KG (273-304)
[2018-07-26 16:52] LABS: Calcium 10.1 MG/DL (8.5-10.1); Osmolality,Calculated 290.4 MOS/KG (273-304); Potassium 3.1 MMOL/L (3.5-5.1)
[2018-07-27 05:11] LABS: Basophils % 0.3 % (0.0-0.8); Eosinophils # 0.2 10*3/uL (0.0-0.87); Eosinophils % 3.4 % (0.00-10.9); Hematocrit 36.4 VOL% (35.7-47.0); Hemoglobin 12.1 GM/DL (12.0-16.0); Immature Granulocytes % 0.4 %; Immature Granulocytes Absolute 0.03 #; Lymphocytes # 0.8 10*3/uL (1.4-4.0); Lymphocytes % 11.7 % (21.3-54.2); Mean Corpuscular HGB Conc 33.2 GM/DL (32-36); Mean Corpuscular Hemoglobin 31 PG (27-34); Mean Corpuscular Volume 92.4 FL (87-102); Monocytes # 0.7 10*3/uL (0.11-0.8); Monocytes % 9.8 % (1.7-12.7); Neutrophils # 5.1 10*3/uL (1.4-7.4); Neutrophils % 74.4 % (38.7-73.9); Platelet Count 187 T/CUMM (130-400); Red Blood Count 3.94 MC/CUMM (3.8-5.5); Red Cell Distribution Width 16.3 % (9.3-17.3); White Blood Count 6.9 T/CUMM (4-12)
[2018-07-27 06:41] LABS: Calcium 10.6 MG/DL (8.5-10.1)
[2018-07-27 06:42] LABS: Osmolality,Calculated 290.4 MOS/KG (273-304); Potassium 2.8 MMOL/L (3.5-5.1)
[2018-07-27 15:13] LABS: Blood Urea Nitrogen 53 MG/DL (7-18); Calcium 11.3 MG/DL (8.5-10.1); Glucose 165 MG/DL (74-106); Osmolality,Calculated 292.7 MOS/KG (273-304); Potassium 3.4 MMOL/L (3.5-5.1); Sodium 138 MMOL/L (136-145)
[2018-07-28 07:29] LABS: Blood Urea Nitrogen 58 MG/DL (7-18); Calcium 10.8 MG/DL (8.5-10.1); Glucose 91 MG/DL (74-106)
[2018-07-28 07:30] LABS: Osmolality,Calculated 301.8 MOS/KG (273-304); Potassium 3.5 MMOL/L (3.5-5.1); Sodium 144 MMOL/L (136-145)
[2018-07-29 04:38] LABS: Basophils % 0.3 % (0.0-0.8); Eosinophils # 0.2 10*3/uL (0.0-0.87); Hematocrit 33.6 VOL% (35.7-47.0); Hemoglobin 10.9 GM/DL (12.0-16.0); Immature Granulocytes % 0.8 %; Immature Granulocytes Absolute 0.05 #; Lymphocytes # 0.8 10*3/uL (1.4-4.0); Lymphocytes % 14.2 % (21.3-54.2); Mean Corpuscular HGB Conc 32.4 GM/DL (32-36); Mean Corpuscular Hemoglobin 31 PG (27-34); Mean Corpuscular Volume 95.5 FL (87-102); Mean Platelet Volume 9.7 FL (9.6-12.0); Monocytes # 0.6 10*3/uL (0.11-0.8); Monocytes % 10.8 % (1.7-12.7); Neutrophils # 4.2 10*3/uL (1.4-7.4); Neutrophils % 70.9 % (38.7-73.9); Platelet Count 195 T/CUMM (130-400); Red Blood Count 3.52 MC/CUMM (3.8-5.5); Red Cell Distribution Width 16.8 % (9.3-17.3); White Blood Count 5.9 T/CUMM (4-12)
[2018-07-29 05:01] LABS: Calcium 10.4 MG/DL (8.5-10.1); Osmolality,Calculated 294.3 MOS/KG (273-304); Potassium 4.2 MMOL/L (3.5-5.1)
[2018-07-30 06:01] LABS: Basophils % 0.3 % (0.0-0.8); Eosinophils # 0.1 10*3/uL (0.0-0.87); Eosinophils % 2.1 % (0.00-10.9); Hemoglobin 10.8 GM/DL (12.0-16.0); Immature Granulocytes % 1.1 %; Immature Granulocytes Absolute 0.07 #; Lymphocytes # 0.7 10*3/uL (1.4-4.0); Lymphocytes % 11.4 % (21.3-54.2); Mean Corpuscular HGB Conc 31.8 GM/DL (32-36); Mean Corpuscular Hemoglobin 31 PG (27-34); Mean Corpuscular Volume 97.1 FL (87-102); Mean Platelet Volume 9.5 FL (9.6-12.0); Monocytes # 0.5 10*3/uL (0.11-0.8); Monocytes % 8.8 % (1.7-12.7); Neutrophils # 4.7 10*3/uL (1.4-7.4); Neutrophils % 76.3 % (38.7-73.9); Platelet Count 204 T/CUMM (130-400); Red Cell Distribution Width 16.9 % (9.3-17.3); White Blood Count 6.1 T/CUMM (4-12)
[2018-07-30 06:40] LABS: Calcium 9.6 MG/DL (8.5-10.1); Osmolality,Calculated 292.4 MOS/KG (273-304); Potassium 4.2 MMOL/L (3.5-5.1)
[2018-07-31 05:27] LABS: Basophils % 0.4 % (0.0-0.8); Eosinophils # 0.1 10*3/uL (0.0-0.87); Eosinophils % 2.1 % (0.00-10.9); Hematocrit 32.2 VOL% (35.7-47.0); Hemoglobin 10.2 GM/DL (12.0-16.0); Immature Granulocytes % 2.5 %; Immature Granulocytes Absolute 0.14 #; Lymphocytes # 0.8 10*3/uL (1.4-4.0); Lymphocytes % 14.8 % (21.3-54.2); Mean Corpuscular HGB Conc 31.7 GM/DL (32-36); Mean Corpuscular Hemoglobin 30 PG (27-34); Mean Corpuscular Volume 95.5 FL (87-102); Mean Platelet Volume 9.4 FL (9.6-12.0); Monocytes # 0.5 10*3/uL (0.11-0.8); Monocytes % 8.4 % (1.7-12.7); Neutrophils % 71.8 % (38.7-73.9); Platelet Count 191 T/CUMM (130-400); Red Blood Count 3.37 MC/CUMM (3.8-5.5); Red Cell Distribution Width 16.7 % (9.3-17.3); White Blood Count 5.6 T/CUMM (4-12)
[2018-07-31 05:56] LABS: Calcium 9.1 MG/DL (8.5-10.1); Osmolality,Calculated 291.1 MOS/KG (273-304); Potassium 3.7 MMOL/L (3.5-5.1)
[2018-08-01 04:54] LABS: Basophils % 0.5 % (0.0-0.8); Eosinophils # 0.1 10*3/uL (0.0-0.87); Eosinophils % 1.6 % (0.00-10.9); Hematocrit 30.6 VOL% (35.7-47.0); Hemoglobin 10.1 GM/DL (12.0-16.0); Immature Granulocytes % 3.3 %; Immature Granulocytes Absolute 0.21 #; Lymphocytes # 0.8 10*3/uL (1.4-4.0); Lymphocytes % 11.8 % (21.3-54.2); Mean Corpuscular Hemoglobin 31 PG (27-34); Mean Platelet Volume 9.5 FL (9.6-12.0); Monocytes # 0.6 10*3/uL (0.11-0.8); Monocytes % 8.6 % (1.7-12.7); NRBC # 0.02 10*3/uL; Neutrophils # 4.7 10*3/uL (1.4-7.4); Neutrophils % 74.2 % (38.7-73.9); Platelet Count 196 T/CUMM (130-400); Red Blood Count 3.29 MC/CUMM (3.8-5.5); Red Cell Distribution Width 16.7 % (9.3-17.3); White Blood Count 6.4 T/CUMM (4-12)
[2018-08-01 05:41] LABS: Calcium 8.7 MG/DL (8.5-10.1); Osmolality,Calculated 289.1 MOS/KG (273-304); Potassium 3.8 MMOL/L (3.5-5.1)
[2018-08-02 04:53] LABS: Basophils % 0.4 % (0.0-0.8); Eosinophils # 0.1 10*3/uL (0.0-0.87); Hematocrit 30.3 VOL% (35.7-47.0); Hemoglobin 9.7 GM/DL (12.0-16.0); Immature Granulocytes % 2.9 %; Lymphocytes # 1.1 10*3/uL (1.4-4.0); Lymphocytes % 15.4 % (21.3-54.2); Mean Corpuscular Hemoglobin 31 PG (27-34); Mean Corpuscular Volume 95.3 FL (87-102); Mean Platelet Volume 9.4 FL (9.6-12.0); Monocytes # 0.6 10*3/uL (0.11-0.8); Monocytes % 8.9 % (1.7-12.7); NRBC # 0.02 10*3/uL; Neutrophils # 4.9 10*3/uL (1.4-7.4); Neutrophils % 71.4 % (38.7-73.9); Platelet Count 189 T/CUMM (130-400); Red Blood Count 3.18 MC/CUMM (3.8-5.5); White Blood Count 6.9 T/CUMM (4-12)
[2018-08-02 05:16] LABS: Calcium 8.7 MG/DL (8.5-10.1); Osmolality,Calculated 288.3 MOS/KG (273-304); Potassium 3.9 MMOL/L (3.5-5.1)
[2018-08-03 05:22] LABS: Calcium 8.6 MG/DL (8.5-10.1); Potassium 3.9 MMOL/L (3.5-5.1)
[2018-08-04 09:25] LABS: Basophils # 0.1 10*3/uL (0.0-0.2); Basophils % 0.6 % (0.0-0.8); Eosinophils # 0.1 10*3/uL (0.0-0.87); Hematocrit 32.8 VOL% (35.7-47.0); Hemoglobin 10.8 GM/DL (12.0-16.0); Immature Granulocytes % 1.6 %; Immature Granulocytes Absolute 0.14 #; Lymphocytes # 1.4 10*3/uL (1.4-4.0); Lymphocytes % 15.9 % (21.3-54.2); Mean Corpuscular HGB Conc 32.9 GM/DL (32-36); Mean Corpuscular Hemoglobin 31 PG (27-34); Mean Corpuscular Volume 92.9 FL (87-102); Mean Platelet Volume 9.2 FL (9.6-12.0); Monocytes # 0.8 10*3/uL (0.11-0.8); Monocytes % 8.9 % (1.7-12.7); NRBC # 0.02 10*3/uL; Neutrophils # 6.4 10*3/uL (1.4-7.4); Platelet Count 223 T/CUMM (130-400); Red Blood Count 3.53 MC/CUMM (3.8-5.5); Red Cell Distribution Width 17.7 % (9.3-17.3); White Blood Count 8.9 T/CUMM (4-12)
[2018-08-04 09:48] LABS: Calcium 8.9 MG/DL (8.5-10.1); Osmolality,Calculated 289.1 MOS/KG (273-304); Potassium 3.7 MMOL/L (3.5-5.1)
[2018-08-05 05:03] LABS: Calcium 8.6 MG/DL (8.5-10.1); Osmolality,Calculated 292.8 MOS/KG (273-304); Potassium 3.7 MMOL/L (3.5-5.1)
[2018-08-06 08:42] LABS: Calcium 8.8 MG/DL (8.5-10.1); Osmolality,Calculated 298.6 MOS/KG (273-304); Potassium 3.9 MMOL/L (3.5-5.1)
[2018-08-06 12:25] VITALS: BP 122/69
== END 2018-08-06 14:18 | DRG 280 ==
LOC: N.ED 09:00 → N.EDINP 11:14 → SUATTDRO 11:14 → N.EDINP 13:45 → N.4E 14:04 → N.CC 07-24 05:05 → N.TELEN 07-29 16:00
PROVIDERS: ADMIT Internal Medicine; ATTEND Hospitalist

== ENCOUNTER 2018-08-09 12:46 | Inpatient (IN) ==
[2018-08-09 13:59] LABS: Basophils % 0.2 % (0.0-0.8); Eosinophils # 0.1 10*3/uL (0.0-0.87); Eosinophils % 0.7 % (0.00-10.9); Hemoglobin 10.4 GM/DL (12.0-16.0); Immature Granulocytes % 1.2 %; Immature Granulocytes Absolute 0.13 #; Lymphocytes # 0.7 10*3/uL (1.4-4.0); Lymphocytes % 5.9 % (21.3-54.2); Mean Corpuscular HGB Conc 33.5 GM/DL (32-36); Mean Corpuscular Hemoglobin 31 PG (27-34); Mean Platelet Volume 8.9 FL (9.6-12.0); Monocytes # 0.6 10*3/uL (0.11-0.8); Neutrophils # 9.6 10*3/uL (1.4-7.4); Platelet Count 237 T/CUMM (130-400); Red Blood Count 3.37 MC/CUMM (3.8-5.5); Red Cell Distribution Width 18.4 % (9.3-17.3)
[2018-08-09 14:27] LABS: Calcium 10.1 MG/DL (8.5-10.1)
[2018-08-09 14:28] LABS: Osmolality,Calculated 289.3 MOS/KG (273-304); Potassium 3.7 MMOL/L (3.5-5.1)
[2018-08-09] MEDS ORDERED: MORPHINE 4 MG/1 ML VIAL IV STA (14:52)
[2018-08-09] MEDS ORDERED: ONDANSETRON 4 MG/2 ML VIAL IV STA (14:53)
[2018-08-09] MEDS ORDERED: ONDANSETRON 4 MG/2 ML VIAL IV PRN (15:22)
[2018-08-09] MEDS ORDERED: traZODone 50 MG TABLET PO PRN (15:22)
[2018-08-09] MEDS ORDERED: ALBUTEROL/IPRATROPIUM 3 ML NEB RESP TX PRN (15:26)
[2018-08-09] MEDS ORDERED: ALBUTEROL 0.63 MG/3 ML NEB RESP TX PRN (15:26)
[2018-08-09 15:29] LABS: Apearance,Urine CLEAR (Clear); Bilirubin,Urine Negative (Negative); Blood, Urine Negative (Negative); Glucose,Urine (UA) Negative (Negative); Hyaline Casts,Urine 1 /LPF (0-3); Ketones,Urine Negative (Negative); Nitrite,Urine Negative (Negative); Protein,Urine Negative; RBC,Urine <1 /HPF (0-4); Squamous Epithelial Cell,Urine Occasional /HPF (0-10); Urine Color Yellow (Yellow); Urine Specific Gravity 1.005 (1.001-1.035); Urine Urobilinogen < 2.0 EU/DL (0.2-1.0)
[2018-08-09] MEDS: FUROSEMIDE 80 MG TABLET PO SCH (17:41)
[2018-08-09] MEDS: ACETAMINOPHEN 325 MG TABLET PO PRN (17:42)
[2018-08-09] MEDS: ENOXAPARIN 30 MG/0.3 ML SYRINGE SUBCUT SCH (17:43)
[2018-08-09] MEDS: IPRATROPIUM 500 MCG/2.5 ML NEB RESP TX SCH (19:01)
[2018-08-09] MEDS: oxyCODONE IR 5 MG TABLET PO PRN (19:09)
[2018-08-09] MEDS: VENLAFAXINE XR 75 MG CAPSULE PO SCH (21:16)
[2018-08-09] MEDS: CALCIUM (CARBONATE)/VITAMIN D 600 MG-400 UNIT TABLET PO SCH (21:16)
[2018-08-09] MEDS: ATORVASTATIN 10 MG TABLET PO SCH (21:17)
[2018-08-09] MEDS: GABAPENTIN 100 MG CAPSULE PO SCH (21:17)
[2018-08-09] MEDS: clonazePAM 0.5 MG TABLET PO SCH (21:17)
[2018-08-09] MEDS: METOPROLOL TARTRATE 25 MG TABLET PO SCH (21:18)
[2018-08-09] MEDS: BUDESONIDE/FORMOTEROL 160-4.5 INHALER 6 GM INH SCH (21:22)
[2018-08-10] MEDS: MORPHINE 4 MG/1 ML VIAL IV PRN ×2 (00:12→07:55)
[2018-08-10] MEDS: oxyCODONE IR 5 MG TABLET PO PRN (02:24)
[2018-08-10 05:44] LABS: Basophils % 0.2 % (0.0-0.8); Eosinophils # 0.2 10*3/uL (0.0-0.87); Eosinophils % 2.1 % (0.00-10.9); Hematocrit 31.6 VOL% (35.7-47.0); Hemoglobin 10.4 GM/DL (12.0-16.0); Immature Granulocytes % 0.9 %; Immature Granulocytes Absolute 0.08 #; Lymphocytes # 1.3 10*3/uL (1.4-4.0); Lymphocytes % 13.7 % (21.3-54.2); Mean Corpuscular HGB Conc 32.9 GM/DL (32-36); Mean Corpuscular Hemoglobin 31 PG (27-34); Mean Corpuscular Volume 94.9 FL (87-102); Mean Platelet Volume 9.1 FL (9.6-12.0); Monocytes # 0.8 10*3/uL (0.11-0.8); Monocytes % 8.7 % (1.7-12.7); Neutrophils % 74.4 % (38.7-73.9); Platelet Count 225 T/CUMM (130-400); Red Blood Count 3.33 MC/CUMM (3.8-5.5); Red Cell Distribution Width 18.6 % (9.3-17.3); White Blood Count 9.3 T/CUMM (4-12)
[2018-08-10 06:06] LABS: Calcium 10.1 MG/DL (8.5-10.1); Potassium 3.8 MMOL/L (3.5-5.1)
[2018-08-10] MEDS: LEVOTHYROXINE 100 MCG TABLET PO SCH (06:33)
[2018-08-10] MEDS: IPRATROPIUM 500 MCG/2.5 ML NEB RESP TX SCH ×2 (07:00→19:14)
[2018-08-10] MEDS: ACETAMINOPHEN 325 MG TABLET PO PRN (10:01)
[2018-08-10] MEDS: PANTOPRAZOLE 40 MG TABLET PO SCH (10:02)
[2018-08-10] MEDS: METOPROLOL TARTRATE 25 MG TABLET PO SCH ×2 (10:02→21:44)
[2018-08-10 10:40] LABS: Albumin 3.2 G/DL (3.4-5.0); Bilirubin,Direct 0.15 MG/DL (0.0-0.20); Bilirubin,Indirect 0.5 MG/DL (0.0-1.0); Bilirubin,Total 0.6 MG/DL (0.2-1.0); Total Protein 5.9 G/DL (6.4-8.3)
[2018-08-10] MEDS ORDERED: HEPARIN/NACL 0.9% 2 UNITS/ML 500 ML IV ONE (15:26)
[2018-08-10] MEDS ORDERED: ROPIVACAINE 0.5% 30 ML VIAL ONE (15:55)
[2018-08-10] MEDS ORDERED: BACITRACIN 50,000 UNIT VIAL ONE (16:19)
[2018-08-10] MEDS ORDERED: CLINDAMYCIN INJ 50 ML IV ONE (16:26)
[2018-08-10] MEDS ORDERED: fentaNYL 100 MCG/2 ML VIAL ONE (17:35)
[2018-08-10] MEDS ORDERED: SEVOFLURANE 1 UNIT/15 MINUTE INH ONE (17:35)
[2018-08-10] MEDS ORDERED: ACETAMINOPHEN 1,000 MG/100 ML VIAL IV ONE (17:36)
[2018-08-10] MEDS ORDERED: SUCCINYLCHOLINE 200 MG/10 ML VIAL ONE (17:36)
[2018-08-10] MEDS ORDERED: ROCURONIUM 100 MG/10 ML VIAL IV ONE (17:36)
[2018-08-10] MEDS ORDERED: ETOMIDATE 40 MG/20 ML VIAL IV ONE (17:36)
[2018-08-10] MEDS ORDERED: methylPREDNISolone SOD SUC 125 MG/2 ML VIAL ONE (17:36)
[2018-08-10] MEDS ORDERED: ALBUTEROL/IPRATROPIUM 3 ML NEB RESP TX ONE (18:05)
[2018-08-10] MEDS: clonazePAM 0.5 MG TABLET PO SCH (21:43)
[2018-08-10] MEDS: GABAPENTIN 100 MG CAPSULE PO SCH (21:44)
[2018-08-10] MEDS: ATORVASTATIN 10 MG TABLET PO SCH (21:44)
[2018-08-10] MEDS: BUDESONIDE/FORMOTEROL 160-4.5 INHALER 6 GM INH SCH (23:23)
[2018-08-11] MEDS: SPIRONOLACTONE 25 MG TABLET PO SCH ×2 (02:49→09:59)
[2018-08-11] MEDS: FUROSEMIDE 80 MG TABLET PO SCH ×3 (02:49→19:17)
[2018-08-11] MEDS: ISOSORBIDE MONONITRATE 30 MG TABLET PO SCH ×2 (02:50→10:00)
[2018-08-11] MEDS: VENLAFAXINE XR 75 MG CAPSULE PO SCH ×4 (02:50→20:39)
[2018-08-11] MEDS: CALCIUM (CARBONATE)/VITAMIN D 600 MG-400 UNIT TABLET PO SCH ×3 (02:50→20:39)
[2018-08-11] MEDS: predniSONE 10 MG TABLET PO SCH ×2 (02:51→10:00)
[2018-08-11] MEDS: BUDESONIDE/FORMOTEROL 160-4.5 INHALER 6 GM INH SCH ×3 (02:51→21:41)
[2018-08-11] MEDS: MONTELUKAST 10 MG TABLET PO SCH ×2 (02:51→09:58)
[2018-08-11] MEDS: POTASSIUM CHLORIDE 20 MEQ TABLET PO SCH ×2 (02:51→10:00)
[2018-08-11] MEDS: ENOXAPARIN 30 MG/0.3 ML SYRINGE SUBCUT SCH (02:52)
[2018-08-11] MEDS: oxyCODONE IR 5 MG TABLET PO PRN ×3 (02:56→20:41)
[2018-08-11 06:31] LABS: Basophils % 0.3 % (0.0-0.8); Hematocrit 30.7 VOL% (35.7-47.0); Hemoglobin 9.9 GM/DL (12.0-16.0); Immature Granulocytes % 0.8 %; Immature Granulocytes Absolute 0.06 #; Lymphocytes # 0.5 10*3/uL (1.4-4.0); Lymphocytes % 6.8 % (21.3-54.2); Mean Corpuscular HGB Conc 32.2 GM/DL (32-36); Mean Corpuscular Hemoglobin 31 PG (27-34); Mean Corpuscular Volume 97.2 FL (87-102); Mean Platelet Volume 9.3 FL (9.6-12.0); Monocytes # 0.3 10*3/uL (0.11-0.8); Monocytes % 4.5 % (1.7-12.7); Neutrophils # 6.7 10*3/uL (1.4-7.4); Neutrophils % 87.6 % (38.7-73.9); Platelet Count 192 T/CUMM (130-400); Red Blood Count 3.16 MC/CUMM (3.8-5.5); Red Cell Distribution Width 18.2 % (9.3-17.3); White Blood Count 7.6 T/CUMM (4-12)
[2018-08-11 06:49] LABS: Albumin 2.8 G/DL (3.4-5.0); Bilirubin,Total 0.8 MG/DL (0.2-1.0); Calcium 8.9 MG/DL (8.5-10.1); Osmolality,Calculated 290.4 MOS/KG (273-304); Potassium 4.2 MMOL/L (3.5-5.1); Prealbumin 22.1 MG/DL (20-40); Total Protein 5.8 G/DL (6.4-8.3)
[2018-08-11 07:03] LABS: Folate 13.6 NG/ML (5.4-24.0)
[2018-08-11] MEDS: LEVOTHYROXINE 100 MCG TABLET PO SCH (07:24)
[2018-08-11] MEDS: IPRATROPIUM 500 MCG/2.5 ML NEB RESP TX SCH (07:40)
[2018-08-11] MEDS: METOPROLOL TARTRATE 25 MG TABLET PO SCH ×2 (09:58→20:40)
[2018-08-11] MEDS: PANTOPRAZOLE 40 MG TABLET PO SCH (09:58)
[2018-08-11] MEDS: DOCUSATE SODIUM 100 MG CAPSULE PO PRN (09:59)
[2018-08-11] MEDS: ALBUTEROL/IPRATROPIUM 3 ML NEB RESP TX SCH ×3 (11:15→19:29)
[2018-08-11] MEDS: DORNASE ALFA 2.5 MG/2.5 ML VIAL RESP TX SCH ×2 (11:21→19:29)
[2018-08-11] MEDS ORDERED: NALOXONE 0.4 MG/ML VIAL ONE (12:46)
[2018-08-11] MEDS ORDERED: NALOXONE 0.4 MG/ML VIAL IV ONE (12:49)
[2018-08-11] MEDS: SODIUM CHLORIDE 0.45% 1,000 ML IV SCH (12:58)
[2018-08-11 13:08] LABS: Basophils % 0.1 % (0.0-0.8); Eosinophils # 0.1 10*3/uL (0.0-0.87); Hematocrit 32.3 VOL% (35.7-47.0); Hemoglobin 10.6 GM/DL (12.0-16.0); Immature Granulocytes % 0.9 %; Immature Granulocytes Absolute 0.13 #; Lymphocytes # 0.8 10*3/uL (1.4-4.0); Lymphocytes % 5.9 % (21.3-54.2); Mean Corpuscular HGB Conc 32.8 GM/DL (32-36); Mean Corpuscular Hemoglobin 32 PG (27-34); Mean Platelet Volume 9.2 FL (9.6-12.0); Monocytes # 0.8 10*3/uL (0.11-0.8); Monocytes % 6.1 % (1.7-12.7); Neutrophils # 11.9 10*3/uL (1.4-7.4); Platelet Count 225 T/CUMM (130-400); Red Blood Count 3.33 MC/CUMM (3.8-5.5); White Blood Count 13.8 T/CUMM (4-12)
[2018-08-11 13:36] LABS: Troponin I 0.217 NG/ML (0.00-0.045)
[2018-08-11] MEDS ORDERED: ASPIRIN 325 MG TABLET PO SCH (16:00)
[2018-08-11] MEDS: ACETAMINOPHEN 325 MG TABLET PO PRN (16:43)
[2018-08-11] MEDS: APIXABAN 2.5 MG TABLET PO SCH (20:39)
[2018-08-11] MEDS: clonazePAM 0.5 MG TABLET PO SCH (20:40)
[2018-08-11] MEDS: ATORVASTATIN 40 MG TABLET PO SCH (20:40)
[2018-08-11] MEDS: GABAPENTIN 100 MG CAPSULE PO SCH (20:41)
[2018-08-12] MEDS: SODIUM CHLORIDE 0.45% 1,000 ML IV SCH ×2 (03:36→21:09)
[2018-08-12 05:40] LABS: Basophils % 0.2 % (0.0-0.8); Eosinophils # 0.2 10*3/uL (0.0-0.87); Eosinophils % 1.5 % (0.00-10.9); Hematocrit 30.1 VOL% (35.7-47.0); Hemoglobin 9.7 GM/DL (12.0-16.0); Immature Granulocytes % 0.6 %; Immature Granulocytes Absolute 0.06 #; Lymphocytes % 9.8 % (21.3-54.2); Mean Corpuscular HGB Conc 32.2 GM/DL (32-36); Mean Corpuscular Hemoglobin 31 PG (27-34); Mean Corpuscular Volume 96.8 FL (87-102); Mean Platelet Volume 9.5 FL (9.6-12.0); Monocytes # 0.7 10*3/uL (0.11-0.8); Monocytes % 6.8 % (1.7-12.7); Neutrophils # 8.4 10*3/uL (1.4-7.4); Neutrophils % 81.1 % (38.7-73.9); Platelet Count 197 T/CUMM (130-400); Red Blood Count 3.11 MC/CUMM (3.8-5.5); Red Cell Distribution Width 18.4 % (9.3-17.3); White Blood Count 10.3 T/CUMM (4-12)
[2018-08-12 06:03] LABS: Albumin 2.9 G/DL (3.4-5.0); Bilirubin,Total 0.7 MG/DL (0.2-1.0); Calcium 9.1 MG/DL (8.5-10.1); Osmolality,Calculated 298.8 MOS/KG (273-304); Potassium 3.9 MMOL/L (3.5-5.1); Total Protein 5.9 G/DL (6.4-8.3)
[2018-08-12] MEDS: LEVOTHYROXINE 100 MCG TABLET PO SCH (06:13)
[2018-08-12 06:15] LABS: Risk Ratio 3.13; VLDL CHOLESTEROL 21.2 MG/DL
[2018-08-12] MEDS: ALBUTEROL/IPRATROPIUM 3 ML NEB RESP TX SCH ×4 (07:33→19:21)
[2018-08-12] MEDS: DORNASE ALFA 2.5 MG/2.5 ML VIAL RESP TX SCH ×2 (07:45→19:21)
[2018-08-12] MEDS: SPIRONOLACTONE 25 MG TABLET PO SCH (09:13)
[2018-08-12] MEDS: MONTELUKAST 10 MG TABLET PO SCH (09:13)
[2018-08-12] MEDS: PANTOPRAZOLE 40 MG TABLET PO SCH (09:13)
[2018-08-12] MEDS: CALCIUM (CARBONATE)/VITAMIN D 600 MG-400 UNIT TABLET PO SCH ×2 (09:13→21:04)
[2018-08-12] MEDS: VENLAFAXINE XR 75 MG CAPSULE PO SCH ×2 (09:13→21:06)
[2018-08-12] MEDS: ISOSORBIDE MONONITRATE 30 MG TABLET PO SCH (09:14)
[2018-08-12] MEDS: METOPROLOL TARTRATE 25 MG TABLET PO SCH ×2 (09:14→20:57)
[2018-08-12] MEDS: oxyCODONE IR 5 MG TABLET PO PRN ×3 (09:14→19:22)
[2018-08-12] MEDS: FUROSEMIDE 80 MG TABLET PO SCH ×2 (09:14→19:18)
[2018-08-12] MEDS: POTASSIUM CHLORIDE 20 MEQ TABLET PO SCH (09:14)
[2018-08-12] MEDS: predniSONE 10 MG TABLET PO SCH (09:14)
[2018-08-12] MEDS: APIXABAN 2.5 MG TABLET PO SCH ×2 (09:14→20:59)
[2018-08-12] MEDS: BUDESONIDE/FORMOTEROL 160-4.5 INHALER 6 GM INH SCH ×2 (09:16→21:08)
[2018-08-12] MEDS ORDERED: LACTULOSE 20 GM/30 ML UDCUP PO PRN (12:32)
[2018-08-12] MEDS: DOCUSATE SODIUM 100 MG/10 ML UDCUP PO SCH ×3 (13:03→21:05)
[2018-08-12] MEDS: LACTULOSE 20 GM/30 ML UDCUP PO ONE ×2 (13:03→15:21)
[2018-08-12] MEDS ORDERED: MAGNESIUM HYDROXIDE SUSP 30 ML UDCUP PO PRN (15:25)
[2018-08-12] MEDS ORDERED: BISACODYL 10 MG SUPP RECTAL ONE (16:24)
[2018-08-12] MEDS: clonazePAM 0.5 MG TABLET PO SCH (20:58)
[2018-08-12] MEDS: ATORVASTATIN 40 MG TABLET PO SCH (21:00)
[2018-08-12] MEDS: GABAPENTIN 100 MG CAPSULE PO SCH (21:01)
[2018-08-12] MEDS: DOCUSATE SODIUM 100 MG CAPSULE PO PRN (21:02)
[2018-08-13] MEDS: oxyCODONE IR 5 MG TABLET PO PRN ×3 (03:52→13:08)
[2018-08-13] MEDS: SODIUM CHLORIDE 0.45% 1,000 ML IV SCH (05:40)
[2018-08-13 07:20] LABS: Basophils % 0.2 % (0.0-0.8); Eosinophils # 0.3 10*3/uL (0.0-0.87); Eosinophils % 2.5 % (0.00-10.9); Hematocrit 32.5 VOL% (35.7-47.0); Hemoglobin 10.3 GM/DL (12.0-16.0); Immature Granulocytes % 0.8 %; Immature Granulocytes Absolute 0.08 #; Lymphocytes # 1.2 10*3/uL (1.4-4.0); Lymphocytes % 11.4 % (21.3-54.2); Mean Corpuscular HGB Conc 31.7 GM/DL (32-36); Mean Corpuscular Hemoglobin 31 PG (27-34); Mean Corpuscular Volume 96.7 FL (87-102); Mean Platelet Volume 9.8 FL (9.6-12.0); Monocytes # 0.8 10*3/uL (0.11-0.8); Monocytes % 8.2 % (1.7-12.7); Neutrophils # 7.8 10*3/uL (1.4-7.4); Neutrophils % 76.9 % (38.7-73.9); Platelet Count 209 T/CUMM (130-400); Red Blood Count 3.36 MC/CUMM (3.8-5.5); Red Cell Distribution Width 18.6 % (9.3-17.3); White Blood Count 10.1 T/CUMM (4-12)
[2018-08-13] MEDS: ALBUTEROL/IPRATROPIUM 3 ML NEB RESP TX SCH ×3 (07:20→14:24)
[2018-08-13] MEDS: DORNASE ALFA 2.5 MG/2.5 ML VIAL RESP TX SCH (07:25)
[2018-08-13] MEDS: LEVOTHYROXINE 100 MCG TABLET PO SCH (07:44)
[2018-08-13 07:48] LABS: Albumin 3.1 G/DL (3.4-5.0); Bilirubin,Total 0.9 MG/DL (0.2-1.0); Calcium 9.5 MG/DL (8.5-10.1); Osmolality,Calculated 297.8 MOS/KG (273-304); Potassium 4.2 MMOL/L (3.5-5.1); Total Protein 6.4 G/DL (6.4-8.3)
[2018-08-13] MEDS: MONTELUKAST 10 MG TABLET PO SCH (09:04)
[2018-08-13] MEDS: FUROSEMIDE 80 MG TABLET PO SCH ×2 (09:04→18:03)
[2018-08-13] MEDS: VENLAFAXINE XR 75 MG CAPSULE PO SCH (09:04)
[2018-08-13] MEDS: SPIRONOLACTONE 25 MG TABLET PO SCH (09:04)
[2018-08-13] MEDS: DOCUSATE SODIUM 100 MG CAPSULE PO PRN (09:04)
[2018-08-13] MEDS: CALCIUM (CARBONATE)/VITAMIN D 600 MG-400 UNIT TABLET PO SCH (09:05)
[2018-08-13] MEDS: PANTOPRAZOLE 40 MG TABLET PO SCH (09:05)
[2018-08-13] MEDS: METOPROLOL TARTRATE 25 MG TABLET PO SCH (09:05)
[2018-08-13] MEDS: ISOSORBIDE MONONITRATE 30 MG TABLET PO SCH (09:05)
[2018-08-13] MEDS: predniSONE 10 MG TABLET PO SCH (09:07)
[2018-08-13] MEDS: POTASSIUM CHLORIDE 20 MEQ TABLET PO SCH (09:11)
[2018-08-13] MEDS: APIXABAN 2.5 MG TABLET PO SCH (09:11)
[2018-08-13] MEDS: BUDESONIDE/FORMOTEROL 160-4.5 INHALER 6 GM INH SCH (09:11)
[2018-08-13] MEDS: DOCUSATE SODIUM 100 MG/10 ML UDCUP PO SCH (09:12)
[2018-08-13 14:52] VITALS: BP 113/82
== END 2018-08-13 17:35 | DRG 480 ==
LOC: EDBD → EDUNIT# → N.ED 12:46 → N.EDINP 15:22 → SUATTDRO 15:23 → N.EDINP 16:18 → N.3E 16:37 → N.4E 08-11 18:49
PROVIDERS: ADMIT Internal Medicine; ATTEND Internal Medicine